=== PATIENT | female | born 1950 | race Caucasian/White ===

== ENCOUNTER → 2024-02-27 10:23 | Outpatient (REF) | payer MEDICARE, BC, SELFPAY | LOC: RAD 10:23 | PROVIDERS: ATTENDING PHYSICIAN Obstetrics & Gynecology; FAMILY PHYSICIAN Family Medicine | DX: N95.0 Postmenopausal bleeding (principal) | CPT/HCPCS: 76830; 76856 ==

== ENCOUNTER → 2024-06-02 13:40 | Outpatient (REF) | payer MEDICARE, BC, SELFPAY ==
[2024-06-02 14:38] LABS: Hematocrit 32.2 % (37.0-47.0); Hemoglobin 10.7 g/dL (12.0-16.0); Mean Corp Hgb Conc. 33.2 g/dL (33.0-37.0); Mean Corpuscular Hgb 28.3 pg (27.0-31.0); Mean Corpuscular Volume 85.2 fL (81.0-99.0); Mean Platelet Volume 10.1 fL (7.4-10.4); Platelet Count 298 10^3/uL (130-400); Red Blood Cell Count 3.78 10^6/uL (4.20-5.40); Red Cell Dist. Width 13.8 % (11.5-14.5); White Blood Cell Count 10.1 10^3/uL (4.8-10.8)
== END ==
LOC: SDSPAT 13:40
PROVIDERS: ATTENDING PHYSICIAN Obstetrics & Gynecology; FAMILY PHYSICIAN Family Medicine; OTHER PHYSICIAN Internal Medicine
DX: Z01.818 Encounter for other preprocedural examination (principal)
CPT/HCPCS: 36415; 85027; 86850; 86900; 86901; 93005

== ENCOUNTER 2024-06-15 13:02 | Emergency (ER) | payer MEDICARE, BC, SELFPAY ==
[2024-06-15 13:04] VITALS: BP 161/101
--- NOTE | 2024-06-15 14:28 | ED.GENMED ---
History of Present Illness
General
Chief Complaint: Head Injury
Source: patient
Exam Limitations: none
Time Seen by Provider: 06/15/24 14:11
Nursing documentation reviewed up to this point in time: agreed with
History of Present Illness
History of Present Illness:
Patient is a 73-year-old female with past medical history of hypertension, hyperlipidemia, currently being worked up for possible uterine cancer, who presents the emergency department from home via EMS for evaluation following a head injury that
occurred around noon today. Patient reports that she was working outside her home when she stepped backwards and into a divot in the ground. She reports that she reportedly fell backwards, striking the back of her head and causing a laceration to
her scalp. Patient reports that she had bleeding from her head which has since stopped. Patient denies that she experienced a loss of consciousness, denies that she is anticoagulated. Patient endorses some slight lightheadedness. She denies any
headache, blurred vision or double vision, neck pain, back pain, nausea, vomiting. Patient denies any numbness, weakness, tingling of her extremities. Patient denies any other injuries were sustained as a result of the fall.
Past History
Past History
ED Past Medical History: HTN, Hypercholesterolemia, NIDDM and Other (currently being evaluated for possible uterine cancer)
ED Past Surgical History: Other (Lumpectomy, cataract surgery)
Social History
Tobacco: Non-smoker
Alcohol: None
Drug: None
Living: alone
Review of Systems
Review of Systems
Allergies reviewed?: Yes
All Other Systems: ROS reviewed and negative except as documented in HPI and ROS
Constitutional: Reports no symptoms
EENT: Reports no symptoms
Respiratory: Reports no symptoms
Cardiac: Reports no symptoms
ABD/GI: Reports no symptoms
: Reports no symptoms
Musculoskeletal: Reports no symptoms
Skin: Reports other (laceration)
Neurological: Reports dizzy; Denies headache
Endocrine: Reports no symptoms
Hematologic/Lymphatic: Reports no symptoms
Psychiatric: Reports no symptoms
Phy Exam
General Physical Exam
General Presentation: well appearing and no apparent distress
General Skin: warm and dry
General Habitus: normal
General Mental: alert
General Hydration: appears well hydrated
ENT Exam
ENT Exam: EOMI, pharynx normal, neck supple and normocephalic
Eye Exam
Eye Exam: PERRL, cornea clear and conjunctiva normal
Cardiovascular Exam
Cardiovascular Exam: regular rate/rhythm, no edema, no murmur and normal peripheral pulses
Pulmonary Exam
Pulmonary Exam: lungs clear, no respiratory distress, no rales, no crackles, no rhonchi, no stridor, no wheezing and no cough
Gastrointestinal Exam
Gastrointestinal Exam: normal bowel sounds, non tender, soft, no organomegaly, no pulsatile mass and non distended
Neurological Exam
Neurological Exam: alert, oriented x3, no motor deficits and speech normal
Musculoskeletal Exam
Musculoskeletal Exam: full ROM and no edema
Skin Exam
Skin Exam: normal color, warm/dry, no rash, no petechia and other (laceration to the left parietal scalp, no active bleeding)
Psychiatric Exam
Psychiatric Exam: normal mood/affect
Course
Orders/Labs/Results
Orders:
Orders
06/15/24 13:09
CT Cervical Spine W/o Iv Contr Urgent
Comment:
Reason For Exam: head injury
CT Head W/o Iv Contrast Urgent
Comment:
Reason For Exam: head injury
Vital Signs
Initial and Last Documented VS:
Initial Vital Signs
Temp Pulse Resp BP Pulse Ox
97.7 F 100 16 161/101 98
06/15/24 13:04 06/15/24 13:04 06/15/24 13:04 06/15/24 13:04 06/15/24 13:04
Last Documented Vital Signs
Temp Pulse Resp BP Pulse Ox
97.7 F 93 18 182/95 100
06/15/24 13:04 06/15/24 16:10 06/15/24 16:10 06/15/24 16:10 06/15/24 16:10
Procedures
Laceration Closure
Left Scalp:
Status of Wound: clean
Size of Wound in cm: 2.5
Description of Wound Edges: ragged
Preparation: cleaned with saline
Anesthesia: 1% Lidocaine with epi
Revision/Debridement: routine- no revision
Wound exploration: extensive cleaning of contaminated wound
Type of Closure: single layer closure
Skin Closure Material: skin patience
Number of sutures: 5
*Critical Care Note
Total Time (30-74mins, 75-104mins- exclusive of procedures): Not Applicable
Update Note
Update Note:
73-year-old female not currently anticoagulated presents to the emergency department for evaluation following a mechanical fall in which the patient did hit the back of her head and sustained a scalp laceration. Patient denies loss of
consciousness. She reports a slight headache but denies any other neurological complaints. On arrival, patient is hypertensive, afebrile. On exam, patient is well-appearing, she is in no acute distress, laceration is as described, she has no
midline cervical spine tenderness, she has full range of motion of her neck, she is neurologically intact. Given the patient's age, will obtain CT of head of the head and cervical spine. Patient's laceration will require primary closure given the
size today.
CT of the head and cervical spine demonstrates no acute abnormality. Laceration was repaired with 5 patience as described. Patient is safe for discharge to home. She was educated on signs and symptoms as well as treatment of concussion. She
states that her brother will be staying with her and can keep an eye on her. Patient was educated on strict return precautions, she expressed understanding of the plan and agreed.
ED Attending Note
-
Portions of this chart may have been created with voice recognition software.� Occasional wrong word or��sound alike� substitutions may have occurred due to the inherent limitations of voice recognition software.
Discharge Plan
Departure
Patient Disposition: Home (Routine Discharge)
Date of Disposition: 06/15/24
Time of Disposition: 15:55
Patient with high blood pressure during this ER visit?: Yes
Condition: Good
Covid-19: Not Applicable
Discharge Problem:
Closed head injury, Laceration of scalp
Instructions: Head Injury in Adults (DC), Laceration Repair With [place] (DC)
Prescriptions:
No Action
losartan 50 mg Tablet
50 mg PO DAILY
atorvastatin 80 mg Tablet
80 mg PO HS
metformin 1,000 mg Tablet
1,000 mg PO BID
hydrochlorothiazide 12.5 mg Capsule
12.5 mg PO DAILY
magnesium 250 mg Tablet
250 mg PO DAILY
coenzyme Q10 [CoQ-10] 100 mg Capsule
100 mg PO DAILY
cholecalciferol (vitamin D3) [Vitamin D3] 50 mcg (2,000 unit) Capsule
50 mcg PO DAILY
lutein 10 mg Tablet
10 mg PO DAILY
iron 159 mg (45 mg iron) Tablet Extended Release
159 mg PO DAILY
Referrals:
Essie Valdez MD [Family Provider] - Follow up in 5-7 days (For staple removal)
Activity Restrictions/Additional Instructions:
You were seen in the department for evaluation following a head injury. You had a CT scan of your head and neck which shows no dangerous abnormalities. You had a laceration to your scalp which was repaired with 5 patience. Please keep the area
clean by washing gently with soap and water, pat dry. Please follow-up with her primary care provider for staple removal in 5 days. In hitting your head, you could have sustained a concussion. The treatment for this is resting your brain as well
as your body. You may take Tylenol 650 mg every 4 hours if needed for headache, not to exceed 3000 mg in a 24-hour period. However, if you develop severe headache, persistent vomiting, confusion, you should return to the emergency department
immediately.
Interventions
Interventions:
*Risk Screen - Suicide Last Done: 06/15/24 13:06
*General Assessment Last Done: 06/15/24 14:17
*Neglect/Abuse Screening Last Done: 06/15/24 13:06
ED- Fall Risk Assessment Last Done: 06/15/24 16:11
*ED COVID-19 Vaccine History Last Done: 06/15/24 14:17
*Nursing Disposition Last Done: 06/15/24 16:11
ED- Neurological Assessment Last Done: 06/15/24 14:17
ED-Skin Assessment Last Done: 06/15/24 16:11
Discharge Date and Time
Discharge Date/Time: 06/15/24 16:11
Print Language: MALTESE
[2024-06-15 16:10] VITALS: BP 182/95
== END 2024-06-15 16:11 | disposition home or self-care (01) ==
LOC: EMR 13:02
PROVIDERS: EMERGENCY PHYSICIAN Emergency Medicine; FAMILY PHYSICIAN Family Medicine
DX: S09.90XA Unspecified injury of head, initial encounter (principal); S01.01XA Laceration without foreign body of scalp, initial encounter; W19.XXXA Unspecified fall, initial encounter; I10 Essential (primary) hypertension; E78.00 Pure hypercholesterolemia, unspecified; E11.9 Type 2 diabetes mellitus without complications
CPT/HCPCS: 99284; 12001; 70450; 72125

== ENCOUNTER 2024-08-16 22:36 | Inpatient (IN) | payer MEDICARE, BC, SELFPAY ==
[2024-08-16 18:06] VITALS: BP 85/47
[2024-08-16 18:40] LABS: Hematocrit 32.3 % (37.0-47.0); Hemoglobin 10.6 g/dL (12.0-16.0); Mean Corp Hgb Conc. 32.8 g/dL (33.0-37.0); Mean Corpuscular Hgb 27.9 pg (27.0-31.0); Mean Platelet Volume 9.8 fL (7.4-10.4); Platelet Count 277 10^3/uL (130-400); Red Cell Dist. Width 14.4 % (11.5-14.5); White Blood Cell Count 22.3 10^3/uL (4.8-10.8)
[2024-08-16 18:48] LABS: ALT (SGPT) 16 U/L (0-35); AST (SGOT) 25 U/L (14-36); Albumin 3.4 g/dl (3.5-5.0); Alkaline Phosphatase 85 U/L (38-126); Blood Urea Nitrogen 42 mg/dl (7-17); Calcium 9.3 mg/dl (8.4-10.2); Carbon Dioxide 26 mmol/L (22-30); Chloride 98 mmol/L (98-107); Glucose 131 mg/dl (70-99); Potassium 3.9 mmol/L (3.5-5.1); Sodium 135 mmol/L (135-145); Total Bilirubin 0.5 mg/dl (0.2-1.3); Total Protein 6.1 g/dl (6.3-8.2); eGFR 37.03
--- NOTE | 2024-08-16 19:33 | ED.GENMED ---
History of Present Illness
General
Chief Complaint: Ear Problem
Source: patient
Exam Limitations: none
Time Seen by Provider: 08/16/24 19:25
History of Present Illness
History of Present Illness:
See MDM
Past History
Past History
ED Past Medical History: HTN, Hypercholesterolemia, NIDDM and Other (currently being evaluated for possible uterine cancer)
ED Past Surgical History: Gynecological and Other (Lumpectomy, cataract surgery)
Social History
Tobacco: Non-smoker
Alcohol: None
Drug: None
Living: alone
Phy Exam
Physical Exam
Physical Exam:
See MDM
Course
Orders/Labs/Results
Orders:
Orders
08/16/24 18:13
Electrocardiogram (*1) Urgent
Reason for Study: Vertigo / Dizzy
EKG- Treatment ONCE
08/16/24 18:28
Complete Blood Count/With Diff Urgent
Comprehensive Metabolic Panel Urgent
08/16/24 19:32
CT Head W/o Iv Contrast Urgent
Comment:
Reason For Exam: dizzy, left side hearing loss
0.9% Sodium Chloride 1000 ml [Nss] 1,000 ml IV BOLUS
08/16/24 19:53
Troponin I Urgent
08/16/24 20:49
Aspirin Chewable [Low Strength Aspirin] 324 mg PO NOW STA
Abnormal Lab Results
08/16/24 08/16/24
18:28 19:53
WBC 22.3 H 10^3/uL
(4.8-10.8)
RBC 3.80 L 10^6/uL
(4.20-5.40)
Hgb 10.6 L g/dL
(12.0-16.0)
Hct 32.3 L %
(37.0-47.0)
MCHC 32.8 L g/dL
(33.0-37.0)
Abs Immat Gran (auto) 1.1 H 10^3/uL
(0-0.05)
Absolute Neuts (auto) 19.0 H 10^3/uL
(1.4-6.5)
Absolute Lymphs (auto) 1.1 L 10^3/uL
(1.2-3.4)
Absolute Monos (auto) 0.8 H 10^3/uL
(0.1-0.6)
Immature Gran % 4.8 H %
(0-0.5)
Neutrophils % 85.5 H %
(42.2-75.2)
Lymphocytes % 4.9 L %
(20.5-51.1)
BUN 42 H mg/dl
(7-17)
Creatinine 1.5 H mg/dL
(0.6-1.0)
Glucose 131 H mg/dl
(70-99)
Troponin I 0.065 H* ng/ml
Total Protein 6.1 L g/dl
(6.3-8.2)
Albumin 3.4 L g/dl
(3.5-5.0)
08/16/24 18:28
08/16/24 18:28
Vital Signs
Initial and Last Documented VS:
Initial Vital Signs
Temp Pulse Resp BP Pulse Ox
97.5 F 107 18 85/47 100
08/16/24 18:06 08/16/24 18:06 08/16/24 18:06 08/16/24 18:06 08/16/24 18:06
Last Documented Vital Signs
Temp Pulse Resp BP Pulse Ox
97.5 F 107 18 85/47 100
08/16/24 18:06 08/16/24 18:06 08/16/24 18:06 08/16/24 18:06 08/16/24 18:06
MDM/Problems Addressed
Differential Diagnosis Includes:
HPI and MDM Narrative:
73-year-old female presenting with hearing loss in her left ear. She noticed it earlier today when she picked up the phone. She could not hear anyone on the other side. This is also associated with mild dizziness.
On exam, she is well-appearing nontoxic. Upon further questioning, patient just had a hysterectomy a few weeks ago for uterine cancer. Will obtain CT head to look for any evidence of mass effect. Patient found to have leukocytosis but she is
afebrile. She is clinically dry. Will give IV fluids and continue to reassess.
She does complain of mild dyspnea with exertion. Will check troponin
Physical exam
General: Well appearing and non-toxic
HEENT: protecting airway. Bilateral TMs clear. Decreased hearing in left ear. Mastoid is soft and without skin changes
Neck: supple
CV: No evidence of cyanosis
Resp: No accessory muscle use
Abd: Non-distended. Postsurgical incisions are clean and intact. No abdominal tenderness
Extremities: No deformities
Neuro: alert
Psych: Normal affect
Skin: Intact
Problems Addressed including Acute and Chronic Conditions affecting care:
1. Hearing loss
Acuity: acute
Prognosis: stable
Details: Will obtain CT look for any mass effect. Discussed outpatient ENT follow-up
2. Dehydration
Acuity: acute
Prognosis: stable
Details: Will give IVF
3. Exertional dyspnea
Acuity: acute
Prognosis: stable
Details: Will obtain troponin with concern for possible ACS
Updates
CT head negative. Hearing is improving with IV fluids. Patient found to have an elevated troponin. He does complain of recent dyspnea with exertion. Given compliance with Eliquis, doubt PE. Will give aspirin and admit for ACS rule out
Differential Diagnosis (but not limited to): Inner ear tumor, sensorineural hearing loss, ACS
Testing considered: Blood cultures but she is afebrile
Drug therapy (if applicable): OTC meds, please see d/c instruction regarding Rx drugs
Amount and/or Complexity of Data Reviewed
Clinical info obtained from: Patient
External data reviewed: N/A
Labs I independently reviewed (but not limited to): Leukocytosis
Radiology: The CT scan was personally and independently reviewed. In addition, official CT report reviewed.
Pulse Ox: not hypoxic
EKG independently reviewed: Sinus rhythm, normal axis, no STEMI
Lumber Racker: Sinus rhythm
Critical Care: N/A
Risk of Complication:
Social Determinants of health: Good social support
Discussed with other providers: Hospitalist
Escalation of Care includes Admit/Obs: Given the exertional dyspnea with elevated troponin, will admit
Occasional wrong word or 'sound a like' substitutions may have occurred due to the inherent limitations of voice recognition software. Read the chart carefully and recognize, using context, where substitutions have occurred.
*Critical Care Note
Total Time (30-74mins, 75-104mins- exclusive of procedures): Not Applicable
ED Attending Note
-
Portions of this chart may have been created with voice recognition software.� Occasional wrong word or��sound alike� substitutions may have occurred due to the inherent limitations of voice recognition software.
Discharge Plan
Departure
Patient Disposition: Admit
Date of Disposition: 08/16/24
Time of Disposition: 20:55
Admit to: Telemetry
Presentation/result/management discussed w/ accepting MD/DO: Hospitalist
Discharge Problem:
Exertional dyspnea
Prescriptions:
No Action
losartan 50 mg Tablet
50 mg PO DAILY
atorvastatin 80 mg Tablet
80 mg PO HS
metformin 1,000 mg Tablet
1,000 mg PO BID
hydrochlorothiazide 12.5 mg Capsule
12.5 mg PO DAILY
magnesium 250 mg Tablet
250 mg PO DAILY
coenzyme Q10 [CoQ-10] 100 mg Capsule
100 mg PO DAILY
cholecalciferol (vitamin D3) [Vitamin D3] 50 mcg (2,000 unit) Capsule
50 mcg PO DAILY
lutein 10 mg Tablet
10 mg PO DAILY
iron 159 mg (45 mg iron) Tablet Extended Release
159 mg PO DAILY
Referrals:
Essie Valdez MD [Family Provider] -
Interventions
Interventions:
*Risk Screen - Suicide Last Done: 08/16/24 18:06
*General Assessment Last Done: 08/16/24 18:06
*Neglect/Abuse Screening Last Done: 08/16/24 18:06
Discharge Date and Time
Print Language: TAIWANESE
[2024-08-16] MEDS: NSS 1000 IV (19:57)
[2024-08-16 20:03] LABS: % Basophils 0.3 % (0-2); % Eosinophils 0.7 % (0-6); % Immature Granulocytes 4.8 % (0-0.5); % Lymphocytes 4.9 % (20.5-51.1); % Monocytes 3.8 % (1.7-9.3); % Neutrophils 85.5 % (42.2-75.2); Absolute Basophils 0.1 10^3/uL (0-0.2); Absolute Eosinophils 0.2 10^3/uL (0-0.7); Absolute Immature Granulocytes 1.1 10^3/uL (0-0.05); Absolute Lymphocytes 1.1 10^3/uL (1.2-3.4); Absolute Monocytes 0.8 10^3/uL (0.1-0.6); Nucleated Red Blood Cells % 0 %
[2024-08-16 20:32] LABS: Troponin I 0.065 ng/ml
[2024-08-16] MEDS: LOW STRENGTH ASPIRIN 324 MG PO (20:58)
[2024-08-16 21:01] VITALS: BP 126/65
[2024-08-16 21:37] VITALS: BMI 26.3
[2024-08-16 22:00] VITALS: BP 124/96
--- NOTE | 2024-08-16 22:27 | HPS.HSE ---
Family Physician
-
Family Physician: Essie Valdez MD
Chief Complaint
-
Hearing Loss
History of Present Illness
Patient is a 73y F with PMH significant for hypertension, DM-II and uterine cancer s/p recent hysterectomy who presents to ED complaining of hearing loss. Patient states that she was feeling well / recovering well at home following her
hysterectomy on 07/27/24. On Saturday evening she noted shaking chills. When she woke on Saturday, she noted very poor balance. She had to hold onto furniture in order to walk in her home. She denies any associated headache, room spinning
sensation or nausea. She felt improved today in regards to her balance; however, she noted significant hearing loss in the L ear only. This prompted patient to present to the ED for further evaluation.
Patient notes that she has been having issues with constipation and urinary incontinence since her recent surgery.
She has been on a bowel regimen at home and reports having two BM on Saturday.
She reports mild dyspnea with activity. No sore throat. Mild, non-productive cough.
Patient incidentally notes that she had a fall on 06/15/24. She fell backwards and struck her head on the ground. She was evaluated in the ED here and CT imaging at that time was unremarkable.
She noted no new neurologic symptoms - prior to balance issue that started only 24 hours ago.
Medical History
Past Medical History
Past Medical History: Reports Other
Additional Past Medical History:
Metastatic Uterine Cancer
Breast Cancer s/p Lumpectomy, Chemo and XRT
Hypertension
DM-II
Past Surgical History: Reports Other
Additional Past Surgical History:
Right Lumpectomy
Hysterectomy (07/27/24)
Social History
Tobacco: Non-smoker
Alcohol: None
Drug: None
Family History
Family History: Other (Mother: Breast Cancer ( age 41))
Allergies / Home Medications
Allergies reflects when Allergies were last updated in [facility].
Home Medications with original date entered in [facility]
Allergy/Medication List:
Allergies
Allergy/AdvReac Type Severity Reaction Status Date / Time
Penicillins Allergy Rash Verified 06/01/24 10:32
Home Medications
atorvastatin 80 mg tablet 80 mg PO HS 06/01/24
hydrochlorothiazide 12.5 mg capsule 12.5 mg PO DAILY 06/01/24
losartan 50 mg tablet 50 mg PO DAILY 06/01/24
lutein 10 mg tablet 10 mg PO BID 06/01/24
metformin 1,000 mg tablet 1,000 mg PO BID 06/01/24
apixaban 2.5 mg tablet (Eliquis) 2.5 mg PO BID 08/16/24
sennosides 8.6 mg tablet (senna) 8.6 mg PO DAILY PRN constipation 08/16/24
Review of Systems
-
History Source: Patient
A 12 point ROS was completed and negative except as noted: Yes
Constitutional: Reports Fatigue and Chills; Denies Fever
EENT: Reports Other (Hearing Loss (Left)); Denies Sore Throat
Respiratory: Reports Trouble Breathing; Denies Cough
Cardiac: Denies Chest Pain, Diaphoresis, Palpitations or Syncope
Abdomen/GI: Reports Constipated; Denies Abdominal Pain, Nausea, Vomiting, Diarrhea, Bloody Stools or Black Stools
: Reports Incontinence; Denies Dysuria, Frequency or Flank Pain
Musculoskeletal: Denies Joint Pain or Edema
Neurological: Reports Dizzy; Denies Headache, Weakness or Numbness
Psych: Denies Depression or Anxiety
Physical Exam
Vital Signs
Vital Signs
Temp Pulse Resp BP Pulse Ox
97.5 F 81 16 126/65 100
08/16/24 18:06 08/16/24 21:30 08/16/24 21:30 08/16/24 21:01 08/16/24 18:06
Physical Exam
General: Other (73y F in no acute distress. Mildly pale-appearing.)
HEENT: Moist mucous membranes, PERRLA and Other (No significant cerumen b/l EACs. )
Respiratory: Clear; No Wheezes, Rales or Rhonchi
Cardiac: S1/S2, Regular Rhythm and Murmur (II/ KD)
GI: Other ([place] incision healing well. No bleeding / discharge. No abdominal tenderness / rebound / guarding. Pos BS.)
Musculoskeletal: No Clubbing, No Cyanosis and No Edema
Neuro: AO x 3 and Nonfocal/grossly intact
Laboratory Results
-
08/16/24 18:28
08/16/24 18:28
Laboratory Results
Total Bilirubin 0.5 mg/dl (0.2-1.3) 08/16/24 18:28
AST 25 U/L (14-36) 08/16/24 18:28
ALT 16 U/L (0-35) 08/16/24 18:28
Alkaline Phosphatase 85 U/L (38-126) 08/16/24 18:28
Troponin I 0.065 ng/ml H* 08/16/24 19:53
Impression/Plan
-
A/P: Patient is a 73y F with PMH significant for metastatic uterine cancer, hypertension and DM-II who presents to ED complaining of unilateral hearing loss.
Left-Sided Sensorineural Hearing Loss
- Admit for further evaluation and treatment.
- Patient with some unsteady gait - but no room spinning / vertigo.
- Begin corticosteroids (pred 60mg daily) given sudden unlateral sensorineural hearing loss.
- Follow for clinical improvement.
- Additional work up to include MRI w and w/o contrast.
- Monitor for any new / worsening symptoms.
- PT / OT evaluation for gait - though patient states that this is improving.
SIRS
- Patient presented with tachycardia, leukocytosis with shift. Stated chills Tab evening.
- No other specific / focal symptoms to suggest infectious etiology.
- Abdomen is benign following recent surgery.
- Observe off of abx for now.
- Check cultures and follow for any new / focal symptoms.
Abnormal Troponin
- Troponin in the ED mildly elevated at 0.065. No chest pain. Mild dyspnea that patient states has been chronic.
- EKG without evident ischemia.
- Follow serial trop to peak.
- Cardiology evaluation if any new / worsening symptoms or if troponin increases.
Renal Insufficiency
- SCr on admission is 1/5 with no prior values for comparison.
- Will hold ARB for now. IVFs overnight.
- Follow labs over 48 hours to determine MALLIKA v CKD.
Normocytic Anemia
- Stable / unchanged from prior Hgb on file.
- Check iron studies. Follow for changes in H&H.
Metastatic Uterine Cancer
- s/p hysterectomy on 07/27/24.
- Has yet to begin adjuvant therapies (chemo / XRT / etc).
- Plan is to begin after two months of surgical recovery.
- MRI brain as noted above.
- Surgical incision appears to be healing well.
- Follow for any changes.
Benign Hypertension
- BP on the lower side in the ED.
- Hold HCTZ and ARB acutely.
DM-II
- Stable. Hold metformin acutely.
- Follow glucose and cover with SSI as needed.
- Update A1C.
Post-Op Constipation
- Improving with bowel regimen at home per patient.
- Abdomen is benign.
- Continue bowel regimen and follow for results.
DVT Prophylaxis: Continue Eliquis started post-op for this purpose.
Code Status: Full
[2024-08-16] MEDS: DELTASONE 60 MG PO (22:38)
[2024-08-16 23:00] VITALS: BP 128/73
[2024-08-17] VITALS (9 sets, daily range): BP systolic 106–161; BP diastolic 57–85; BMI 23.9
--- NOTE | 2024-08-17 02:30 | PTCARENOTE ---
Received patient from ER. Stable vitals. Offers no complaints. SR with PACs on tele in 70s-80s. POC reviewed with patient
[2024-08-17 02:39] LABS: Urine Albumin 1+ (Neg - Trace); Urine Bilirubin Negative (Negative); Urine Character Slightly Cloudy (Clear); Urine Color Yellow; Urine Glucose Negative (Negative); Urine Ketone Negative (Negative); Urine Leukocyte 2+ (Negative); Urine Nitrite Positive (Negative); Urine Occult Blood 3+ (Negative); Urine Specific Gravity 1.015 (<1.030); Urine Urobilinogen Negative (Neg - 1+)
[2024-08-17 02:47] LABS: Urine Bacteria Many (Negative); Urine White Cell 30-40 /HPF (0-5)
[2024-08-17] MEDS: LR 1000 IV ×2 (03:02→13:31)
[2024-08-17 05:59] LABS: Hematocrit 28.1 % (37.0-47.0); Hemoglobin 9.2 g/dL (12.0-16.0); Mean Corp Hgb Conc. 32.7 g/dL (33.0-37.0); Mean Corpuscular Hgb 27.9 pg (27.0-31.0); Mean Corpuscular Volume 85.2 fL (81.0-99.0); Mean Platelet Volume 10.2 fL (7.4-10.4); Platelet Count 233 10^3/uL (130-400); Red Cell Dist. Width 14.4 % (11.5-14.5); White Blood Cell Count 13.8 10^3/uL (4.8-10.8)
[2024-08-17 06:19] LABS: Troponin I 0.029 ng/ml
[2024-08-17 06:24] LABS: ALT (SGPT) 13 U/L (0-35); AST (SGOT) 19 U/L (14-36); Albumin 2.8 g/dl (3.5-5.0); Alkaline Phosphatase 91 U/L (38-126); Blood Urea Nitrogen 39 mg/dl (7-17); Calcium 8.6 mg/dl (8.4-10.2); Carbon Dioxide 22 mmol/L (22-30); Chloride 101 mmol/L (98-107); Direct Bilirubin 0.1 mg/dl (0.0-0.4); Estimated Creatinine Clearance 42 ml/min; Glucose 177 mg/dl (70-99); HDL Cholesterol 41 mg/dl; Iron 24 ug/dl (37-170); LDL Cholesterol, Calculated 69 mg/dl; Magnesium 2.1 mg/dl (1.6-2.3); Potassium 4.1 mmol/L (3.5-5.1); Sodium 132 mmol/L (135-145); Total Bilirubin 0.3 mg/dl (0.2-1.3); Total Cholesterol 139 mg/dl (50-199); Total Protein 5.4 g/dl (6.3-8.2); Triglyceride 148 mg/dl (10-149); Very Low Density Lipoprotein 29 mg/dl (0-30); eGFR 48.39
[2024-08-17 06:33] LABS: Percent Saturation 12 % (20-50); Total Iron Binding Capacity 197 ug/dl (265-497)
[2024-08-17 06:54] LABS: TSH Reflex To Free T4 0.64 uIU/ml (0.47-4.68)
[2024-08-17 08:05] LABS: Troponin I 0.025 ng/ml
[2024-08-17 08:06] LABS: Glucose - Point of Care 212 mg/dl (70-99)
[2024-08-17] MEDS: DELTASONE 60 MG PO (08:27)
[2024-08-17] MEDS: PROTONIX 40 MG PO (08:27)
[2024-08-17] MEDS: ELIQUIS 2.5 MG PO ×2 (08:28→20:18)
[2024-08-17] MEDS: NOVOLOG FLEXPEN-LOW RESISTANCE 2 UNITS SC ×2 (08:29→17:20)
[2024-08-17] MEDS: TYLENOL 650 MG PO ×2 (08:31→21:40)
[2024-08-17 08:34] LABS: Glycohemoglobin (HgbA1c) 6.4 % (4.0-5.6)
--- NOTE | 2024-08-17 09:20 | W.PN.HOSP.TC ---
Addendum entered and electronically signed by Macarena Newsome MD 08/17/24 10:08:
blood culture with gram negative bacilli. UA is inflamed - may be source
will start IV Cefepime
hold off on CT A/P given no abdominal pain (would order if urine culture negative)
consult ID
patient updated
Original Note:
Today's Communication/Plan
-
continue prednisone
MRI
ENT Consult
PT/OT
Assessment / Plan
Assessment / Plan
Patient is a 73y F with PMH significant for hypertension, DM-II and uterine cancer s/p recent hysterectomy 07/27/24 who presents to ED complaining of recent loss of balance and hearing loss.
Left-Sided Sensorineural Hearing Loss
- Patient with some unsteady gait - but no room spinning / vertigo.
- Begin corticosteroids (pred 60mg daily) given sudden unilateral sensorineural hearing loss.
- MRI w and w/o contrast.
- ENT consult
- PT / OT evaluation for gait - though patient states that this is improving.
SIRS
- Patient presented with tachycardia, leukocytosis with shift. Stated chills Saturday evening. Leukocytosis improved this morning and patient currently denies symptoms
- No other specific / focal symptoms to suggest infectious etiology.
- Abdomen is benign following recent surgery.
- Observe off of abx for now.
- Check cultures and follow for any new / focal symptoms.
Abnormal Troponin
- Troponin in the ED mildly elevated at 0.065 - has trended down. No chest pain. Mild dyspnea that patient states has been chronic. in setting of SIRS - non-IA Troponin elevation
- EKG without evident ischemia.
Renal Insufficiency
- SCr on admission is 1.5 with no prior values for comparison.
- Will hold ARB for now. IVFs overnight - improved this AM
- Follow labs over 48 hours to determine MALLIKA v CKD.
Normocytic Anemia
- Stable / unchanged from prior Hgb on file.
- Check iron studies. Follow for changes in H&H.
Metastatic Uterine Cancer
- s/p hysterectomy on 07/27/24.
- Has yet to begin adjuvant therapies (chemo / XRT / etc).
- Plan is to begin after two months of surgical recovery.
- MRI brain as noted above.
- Surgical incision appears to be healing well.
- Follow for any changes.
Benign Hypertension
- BP on the lower side in the ED.
- Hold HCTZ and ARB acutely.
DM-II
- Stable. Hold metformin acutely.
- Follow glucose and cover with SSI as needed.
- Update A1C.
Post-Op Constipation
- Improving with bowel regimen at home per patient.
- Abdomen is benign.
- Continue bowel regimen and follow for results.
DVT Prophylaxis: Continue Eliquis started post-op for this purpose.
Code Status: Full
Anticipated Discharge: 24 - 48 hours
Subjective/Interval History
-
Date of Service: August 17, 2024
possibly notices some improvement left hearing loss
no other weakness/numbness
currently denies chills or aches
Objective Data
-
Labs:
Laboratory Results
08/17/24
05:28
WBC 13.8 H
Hgb 9.2 L
Hct 28.1 L
Plt Count 233
Sodium 132 L
Potassium 4.1
Chloride 101
Carbon Dioxide 22
BUN 39 H
Creatinine 1.2 H
Glucose 177 H
Calcium 8.6
Total Bilirubin 0.3
AST 19
ALT 13
Alkaline Phosphatase 91
Vital Signs:
Vital Signs
Temp Pulse Resp BP Pulse Ox
98.2 F 78 16 139/78 100
08/17/24 07:40 08/17/24 07:40 08/17/24 07:40 08/17/24 07:40 08/17/24 07:40
I&O
08/16/24 08/17/24 08/18/24
06:59 06:59 06:59
Intake Total 780 / 780
Balance 780 / 780
Review of Systems
-
History Source: Patient
All other systems: Reviewed and negative
Physical Exam
-
General: No Apparent Distress
HEENT: PERRLA
Respiratory: Clear to Auscultation; Negative Wheezes
Cardiac: Regular Rhythm and S1/S2
GI: Soft and Nontender
Musculoskeletal: No Edema
Skin: Warm and Dry; Negative Rash
Neuro: AO x 3
Psych: Calm
Data Reviewed
-
Diagnostic Radiology: Report Reviewed by me
Labs: Labs Reviewed by me
[2024-08-17] MEDS: MAXIPIME 2000 MG IV ×2 (10:23→21:45)
[2024-08-17] MEDS: STERILE WATER FOR INJECTION 10 ML IV ×2 (10:23→21:45)
[2024-08-17 10:41] LABS: COVID-19 Antigen Negative (Negative)
--- NOTE | 2024-08-17 10:53 | CM ---
Reviewed the chart notes and spoke with the patient at the bedside. The patient resides alone in a one story home with a few steps to enter. The patient has had [facility] in the past. Patient reports no DME or SNF in the past. The patient
confirmed PCP is Essie Valdez and pharmacy is [facility]. CM continues to be available to patient/family and is monitoring medical plan for needs at discharge.
Plan: Discharge to home when medically stable. No needs anticipated.
[2024-08-17 12:09] LABS: Glucose - Point of Care 256 mg/dl (70-99)
[2024-08-17] MEDS: NOVOLOG FLEXPEN-LOW RESISTANCE 3 UNITS SC (12:27)
--- NOTE | 2024-08-17 12:48 | CON.MD ---
Consultation - Medical
-
chief complaint: Sudden hearing loss
History of present illness: This 73-year-old woman who is chronically anticoagulated with Eliquis and has caz-mfpoqxy-fdfacbejp diabetes mellitus developed sudden dizziness with difficulty standing without support 2 days ago. Later she noted that
she had hearing loss in the left ear. The dizziness has since improved so she is able to walk fairly well. She hears some tinnitus in the left ear but does not have ear pain. She is feeling good otherwise at this point. She had a CT scan of the
head which showed no evidence of fluid within the mastoid cavity. She is scheduled for an MRI scan.
Past medical history:
Allergy: Penicillins cause a rash
Home medications: Eliquis 2.5 mg p.o. twice daily, atorvastatin 80 mg p.o. nightly, hydrochlorothiazide 12.5 mg p.o. daily, losartan 50 mg p.o. daily, lutein 10 mg p.o. twice daily, metformin 1000 mg p.o. twice daily, senna 8.6 mg p.o. daily as
needed
Hospitalizations: The patient is currently hospitalized with left-sided hearing loss and dizziness
Family history: Asked and is noncontributory for this problem
Review of systems: Dizziness 2 days ago now significantly improved, left-sided hearing loss with tinnitus, negative for ear pain and drainage
Physical examination:
Head: Atraumatic and normocephalic
Eyes: Extraocular movements are intact and pupils are equal and reactive to light
Nose: Normal without infection
Oral cavity/oropharynx: Normal
Ears: Eardrums ear canals are clear without signs of fluid or infection.
Cranial nerves: 2 through 12 appear to be intact grossly
Skin: Normal to examination
Thyroid gland: Normal
Salivary glands: Normal to examination
Voice: Normal tone without breathiness
CT scan of head was reviewed and shows evidence of normal mastoids without fluid or mass.
Impression/plan: This 73-year-old woman presents with a 2-day history of dizziness and hearing loss on the left side. She may have experienced a vascular event or a viral infection of the inner ear. I do not see evidence of middle ear infection.
It is also possible she has M�ni�re's disease or autoimmune condition. Her dizziness has significantly improved. She is scheduled for an MRI scan. I suggested that we see her in the office after discharge so we can check her hearing. I gave her
my office phone number. I will see the patient back in the hospital as needed.
--- NOTE | 2024-08-17 13:15 | CON.ID ---
Consultation
-
Date/Time Consultation Requested: 08/17/2024 1003
Date/Time Consultation Performed: 08/17/2024 1240
Requesting Provider: Dr. Newsome
Performing Provider: Dr. Franks
Reason for Consultation: Bacteremia
Chief Complaint / Past History
History of Present Illness
Tracie Vaughn is a 73-year-old female being evaluated at the request of Dr. Newsome in regards to bacteremia. History is obtained from chart review, along with patient interview
Patient has a significant past medical history of recently diagnosed metastatic endometrial cancer, and she is status post hysterectomy on 07/27/2024. She reports that she was doing well in the postop period, but has been dealing with episodes of
intermittent constipation. She also notes that over the past several weeks she has had some intermittent episodes of urinary incontinence with some leakage when standing. She was doing well until approximately 3 to 4 days ago when she recalls the
acute onset of rigors, but without any subsequent fevers. The rigors resolved, but the next day she developed left ear hearing loss and came to the emergency room for further evaluation.
Here, she was found to have marked leukocytosis. Additionally, blood cultures obtained at the time of admission are positive for Klebsiella. Infectious Diseases is asked to comment on further antimicrobial therapy.
At this time, she denies any headache. She denies any significant abdominal discomfort. She denies any history of dysuria or hematuria.
She is followed for her endometrial cancer at [facility].
Past History
Additional Past Medical History:
Metastatic uterine cancer
HTN
Dyslipidemia
DM
Hx breast CA
Additional Past Surgical History:
LEFTY
Lumpectomy
Cataract surgery
Allergy History:
Penicillins Allergy (Verified 06/01/24 10:32)
Rash
Medications Reviewed: Yes
Current Antibiotics:
Cefepime 2 g IV every 12 hours
Social History
Tobacco: Non-Smoker
Alcohol: None
Drug: None
Personal: Single
Living: Alone
Employment: Retired
Family History
Family History: Not Pertinent
Review of Systems
Vital Signs
Temp Pulse Resp BP Pulse Ox
98.2 F 71 16 155/75 96
08/17/24 11:25 08/17/24 11:25 08/17/24 11:25 08/17/24 11:25 08/17/24 11:25
Physical Exam
Physical Exam
Constitutional: No Acute Distress, Comfortable and Non-toxic
Eyes: No Conjunctival Hemorrhage and Sclera Anicteric
Oral: No Thrush and No Ulcers
Cardiovascular: Regular Rate and S1/S2; Negative S3/S4 or Murmur
Pulmonary: Clear; Negative Wheezes or Rales
Gastrointestinal: Soft, Non Tender, Non Distended, Normal Bowel Sounds, No Rebound and No Guarding
Genito-Urinary: Negative Moreno, Suprapubic Tenderness or CVA Tenderness
Extremities: Negative Edema, Cyanosis or Erythema
Skin: Warm and Dry; Negative Rash or Jaundice
Neurological: Awake and Alert
Psychological: Calm
Lab / Diagnostic Study Results
08/17/24 05:28
08/17/24 05:28
Abs Immat Gran (auto) 1.1 10^3/uL (0-0.05) H 08/16/24 18:28
Absolute Neuts (auto) 19.0 10^3/uL (1.4-6.5) H 08/16/24 18:28
Absolute Lymphs (auto) 1.1 10^3/uL (1.2-3.4) L 08/16/24 18:28
Absolute Monos (auto) 0.8 10^3/uL (0.1-0.6) H 08/16/24 18:28
Absolute Basos (auto) 0.1 10^3/uL (0-0.2) 08/16/24 18:28
Immature Gran % 4.8 % (0-0.5) H 08/16/24 18:28
Neutrophils % 85.5 % (42.2-75.2) H 08/16/24 18:28
Lymphocytes % 4.9 % (20.5-51.1) L 08/16/24 18:28
Monocytes % 3.8 % (1.7-9.3) 08/16/24 18:28
Eosinophils % 0.7 % (0-6) 08/16/24 18:28
Basophils % 0.3 % (0-2) 08/16/24 18:28
Ur Squamous Epith Cells 3-5 /LPF (Few) 08/17/24 02:32
Microbiology Results
Micro:
08/16/24 22:40 Blood Culture - Preliminary
Blood/Venous Klebsiella pneumoniae
Gram Stain - Preliminary
08/16/24 22:40 Blood Culture - Preliminary
Blood/Venous Positive culture in progress
Gram Stain - Preliminary
08/17/24 02:32 Urine Culture - Pending
Urine
Imaging:
08/16/2024 CXR (2 view): No evidence for pneumonia. Small thin curvilinear density projecting over the left lower lung on the frontal view, likely a small linear scar. Please see full dictation for additional detail. Film personally viewed.
Assessment / Plan
Klebsiella bacteremia
Suspected complicated urinary tract infection
Leukocytosis
MALLIKA
Metastatic endometrial carcinoma (recent diagnosis; s/p [facility] 07/27/2024)
Hx HTN
Dyslipidemia
DM
Hx breast CA
Recommendations:
Continue with cefepime for the present.
Monitor white count and temperature curve.
Await further culture data to guide antimicrobial selection and de-escalation.
Given bacteremia, check renal ultrasound.
[2024-08-17 17:15] LABS: Glucose - Point of Care 236 mg/dl (70-99)
[2024-08-17 20:07] LABS: Hepatitis C Antibody Negative (Negative)
[2024-08-17 21:31] LABS: Glucose - Point of Care 234 mg/dl (70-99)
[2024-08-17] MEDS: SENOKOT 17.2 MG PO (21:45)
[2024-08-17] MEDS: LIPITOR 80 MG PO (21:45)
[2024-08-18] MEDS: LR 1000 IV (01:41)
[2024-08-18 03:15] VITALS: BP 133/75
[2024-08-18 07:28] LABS: % Basophils 0.2 % (0-2); % Eosinophils 0.1 % (0-6); % Immature Granulocytes 0.5 % (0-0.5); % Lymphocytes 5.4 % (20.5-51.1); % Neutrophils 89.8 % (42.2-75.2); Absolute Immature Granulocytes 0.1 10^3/uL (0-0.05); Absolute Lymphocytes 0.9 10^3/uL (1.2-3.4); Absolute Monocytes 0.7 10^3/uL (0.1-0.6); Absolute Neutrophils 15.3 10^3/uL (1.4-6.5); Hematocrit 28.9 % (37.0-47.0); Hemoglobin 9.8 g/dL (12.0-16.0); Mean Corp Hgb Conc. 33.9 g/dL (33.0-37.0); Mean Corpuscular Hgb 27.7 pg (27.0-31.0); Mean Corpuscular Volume 81.6 fL (81.0-99.0); Mean Platelet Volume 10.9 fL (7.4-10.4); Nucleated Red Blood Cells % 0 %; Platelet Count 216 10^3/uL (130-400); Red Blood Cell Count 3.54 10^6/uL (4.20-5.40); Red Cell Dist. Width 14.2 % (11.5-14.5)
[2024-08-18 07:48] VITALS: BP 157/68
[2024-08-18 07:51] LABS: Blood Urea Nitrogen 33 mg/dl (7-17); Calcium 8.9 mg/dl (8.4-10.2); Carbon Dioxide 22 mmol/L (22-30); Chloride 104 mmol/L (98-107); Estimated Creatinine Clearance 56 ml/min; Glucose 116 mg/dl (70-99); Magnesium 2.2 mg/dl (1.6-2.3); Potassium 4.3 mmol/L (3.5-5.1); Sodium 136 mmol/L (135-145); eGFR > 60.00
[2024-08-18] MEDS: DELTASONE 60 MG PO (09:30)
[2024-08-18] MEDS: PROTONIX 40 MG PO (09:30)
[2024-08-18] MEDS: STERILE WATER FOR INJECTION 10 ML IV (09:30)
[2024-08-18] MEDS: MAXIPIME 2000 MG IV (09:30)
[2024-08-18] MEDS: ELIQUIS 2.5 MG PO (09:30)
[2024-08-18] MEDS: NOVOLOG FLEXPEN-LOW RESISTANCE SC ×2 (09:40→13:27)
[2024-08-18 09:41] LABS: Glucose - Point of Care 95 mg/dl (70-99)
--- NOTE | 2024-08-18 11:07 | W.PN.HOSP.TC ---
Addendum entered and electronically signed by Macarena Newsome MD 08/20/24 14:53:
Sepsis 2/2 Klebsiella pneumonia bacteremia and pelvic abscess
-IV antibiotics as below
Pelvic Abscess is a complication of the surgery and patient was transferred to [facility]
Original Note:
Today's Communication/Plan
-
IV Cefepime
stop fluids
resume Losartan
CT A/P with and without contrast
appreciate ID
appreciate ENT
continue Prednisone (day 10/12)
Assessment / Plan
Assessment / Plan
Patient is a 73y F with PMH significant for hypertension, DM-II and uterine cancer s/p recent hysterectomy 07/27/24 who presents to ED complaining of recent loss of balance and hearing loss.
Renal US
IMPRESSION: Mild bilateral pelvicalyceal dilation.
Round echogenic lesion within the left kidney. See above discussion. Further evaluation is advised, which could begin with an unenhanced CT of the abdomen/kidneys.
Brain MRI
IMPRESSION:
Normal MR appearance of the IACs. No evidence for vestibular schwannoma. No evidence of cerebellopontine angle mass.
No evidence of acute intracranial abnormality.
Mild atrophy.
Mild to moderate T2 and FLAIR white matter hyperintensities, commonly seen with aging and usually attributed to small vessel ischemic disease. These hyperintensities have not been shown to correlate with a focal neurologic deficit.
The mastoid air cells appear clear.
There is slight compression of the left anterior medulla by the left vertebral artery. This finding is fairly commonly seen and generally does not correlate clinically, but please correlate with any symptoms that would suggest left vertebral artery
compression syndrome.
Paranasal sinus disease as described.
Left-Sided Sensorineural Hearing Loss
- Patient with some unsteady gait - but no room spinning / vertigo.
- Begin corticosteroids (pred 60mg daily) given sudden unilateral sensorineural hearing loss.
- MRI w and w/o contrast - results above
- ENT consult appreciated
- discussed with Dr. Stoddard and continue Prednisone x 10 days total
- PT / OT evaluation for gait - though patient states that this is improving.
SIRS
Klebsiella Bacteremia
-appreciate ID
-continue IV Cefepime (day 2)
-renal US results above, will obtain CT A/P to follow up left kidney lesion
-called micro lab - differentiating if culture contaminant versus pathological and states should be bcak tomorrow
Abnormal Troponin
- Troponin in the ED mildly elevated at 0.065 - has trended down. No chest pain. Mild dyspnea that patient states has been chronic. in setting of SIRS - non-NC Troponin elevation
- EKG without evident ischemia.
Renal Insufficiency
- SCr on admission is 1.5 with no prior values for comparison.
- MALLIKA resolved
- OK to stop fluids, OK to resume Losartan
Normocytic Anemia
- Stable / unchanged from prior Hgb on file.
- Check iron studies. Follow for changes in H&H.
Metastatic Uterine Cancer
- s/p hysterectomy on 07/27/24.
- Has yet to begin adjuvant therapies (chemo / XRT / etc).
- Plan is to begin after two months of surgical recovery.
- MRI brain as noted above.
- Surgical incision appears to be healing well.
- Follow for any changes.
Benign Hypertension
- BP on the lower side in the ED.
- Hold HCTZ, resume Losartan
DM-II
- Stable. Hold metformin acutely and for 48 hours post contrast
- Follow glucose and cover with SSI as needed.
- Update A1C.
Post-Op Constipation
- Improving with bowel regimen at home per patient.
- Abdomen is benign.
- Continue bowel regimen and follow for results.
DVT Prophylaxis: Continue Eliquis started post-op for this purpose.
Code Status: Full
51 minutes spent on patient care
Anticipated Discharge: 24 - 48 hours
Subjective/Interval History
-
Date of Service: August 18, 2024
continues to have hearing loss
no significant abdominal pain
Objective Data
-
Labs:
Laboratory Results
08/18/24
06:17
WBC 17.0 H
Hgb 9.8 L
Hct 28.9 L
Plt Count 216
Sodium 136
Potassium 4.3
Chloride 104
Carbon Dioxide 22
BUN 33 H
Creatinine 0.9
Glucose 116 H
Calcium 8.9
Vital Signs:
Vital Signs
Temp Pulse Resp BP Pulse Ox
98.3 F 65 12 157/68 99
08/18/24 07:48 08/18/24 07:48 08/18/24 07:48 08/18/24 07:48 08/18/24 07:48
I&O
08/17/24 08/18/24 08/19/24
06:59 06:59 06:59
Intake Total 780 / 780 2340 / 2340
Balance 780 / 780 2340 / 2340
Review of Systems
-
History Source: Patient
All other systems: Reviewed and negative
Physical Exam
-
General: No Apparent Distress
HEENT: PERRLA
Respiratory: Clear to Auscultation; Negative Wheezes
Cardiac: Regular Rhythm and S1/S2
GI: Soft, Nontender and Other (mid-line incision c/d/i)
Musculoskeletal: No Edema
Skin: Warm and Dry; Negative Rash
Neuro: AO x 3
Psych: Calm
Data Reviewed
-
Diagnostic Radiology: Report Reviewed by me
Labs: Labs Reviewed by me
[2024-08-18 11:28] VITALS: BP 163/76
[2024-08-18] MEDS: COZAAR 50 MG PO (11:39)
[2024-08-18 13:27] LABS: Glucose - Point of Care 156 mg/dl (70-99)
--- NOTE | 2024-08-18 14:22 | W.PN.ID1 ---
Date of Service
Date of Service: August 18, 2024
Today's Communication
Continue cefepime for today.
Assessment / Plan
Klebsiella bacteremia
Suspected complicated urinary tract infection
Leukocytosis
MALLIKA
Metastatic endometrial carcinoma (recent diagnosis; s/p LEFTY 07/27/2024)
Hx HTN
Dyslipidemia
DM
Hx breast CA
Recommendations:
Continue with cefepime for the present.
Monitor white count and temperature curve.
Await further culture data to guide antimicrobial selection and de-escalation.
����������������������������������������������������������
Chief Complaint
-: UTI
Subjective / Review of Systems
Review of Systems: No Fever and No Chills
Vital Signs / Physical Exam
Vital Signs
Vital Signs
Temp Pulse Resp BP Pulse Ox
98.9 F 77 18 163/76 100
08/18/24 11:28 08/18/24 11:28 08/18/24 11:28 08/18/24 11:28 08/18/24 11:28
Physical Exam
Constitutional: No Acute Distress, Comfortable and Non-toxic
Eyes: Sclera Anicteric
Cardiovascular: S1/S2; Negative S3/S4
Pulmonary: Non Labored
Gastrointestinal: Soft, Non Tender and Non Distended
Neurological: Awake and Alert
Psychological: Calm
Objective Data
Lab Data
Lab Results
08/18/24 06:17
08/18/24 06:17
Estimated Creat Clear 56 ml/min 08/18/24 06:17
Total Bilirubin 0.3 mg/dl (0.2-1.3) 08/17/24 05:28
AST 19 U/L (14-36) 08/17/24 05:28
ALT 13 U/L (0-35) 08/17/24 05:28
Alkaline Phosphatase 91 U/L (38-126) 08/17/24 05:28
Most recent labs reviewed.
CT Scan: Image Reviewed and Report Reviewed
Micro Results:
08/17/24 13:32 Blood Culture - Preliminary
Blood/Venous No Growth in 24 hours- Final report to follow
08/16/24 22:40 Blood Culture - Preliminary
Blood/Venous Klebsiella pneumoniae
Gram Stain - Preliminary
08/16/24 22:40 Blood Culture - Preliminary
Blood/Venous Klebsiella pneumoniae
Gram Stain - Preliminary
08/17/24 02:32 Urine Culture - Preliminary
Urine
Imaging:
08/18/2024 CT abdomen/pelvis: Study performed; report pending.
08/17/2024 Renal ultrasound: Mild right pelvic calyceal dilatation noted. A simple cyst peripherally is noted. Mild left pelvic calyceal dilatation is also present. An echogenic lesion is present in the left kidney and this lesion measures 2.2 x
1.8 x 2.3 cm. Advised further evaluation by CT scan.
08/16/2024 CXR (2 view): No evidence for pneumonia. Small thin curvilinear density projecting over the left lower lung on the frontal view, likely a small linear scar. Please see full dictation for additional detail. Film personally viewed.
--- NOTE | 2024-08-18 14:50 | CM ---
Reviewed the chart notes and spoke with the patient at the bedside. Patient had CAT Scan of the abdomen/pelvis today. Per report, 4.5 cm pelvic abscess in the hysterectomy surgical bed. CM continues to be available to patient/family and is
monitoring medical plan for needs at discharge.
Plan: Discharge plans will depend on the patient's progress.
--- NOTE | 2024-08-18 15:33 | PTOTSP ---
The patient is independent with ambulation and denied concerns regarding mobility upon return home. No PT needs identified at this time, will sign off.
--- NOTE | 2024-08-18 16:24 | W.PN.UPDATE ---
Update Note
Progress Note Update
CT results:
IMPRESSION:
1. 4.5 cm PELVIC ABSCESS in the hysterectomy surgical bed.
2. ACUTE BILATERAL PYELONEPHRITIS and mild bilateral hydroureteronephrosis.
3. Moderate nodular omental thickening in the left upper quadrant consistent with OMENTAL METASTATIC DISEASE. Inflammatory/infectious omental disease is considered less likely.
4. 2.1 cm ENLARGED RIGHT EXTERNAL ILIAC LYMPH NODE and mild to moderate retroperitoneal lymphadenopathy suspicious for METASTATIC LYMPHADENOPATHY. Reactive infectious or inflammatory lymphadenopathy is considered less likely.
5. Severe diverticulosis in the descending and sigmoid colon.
6. Mild to moderate wall thickening in the cecum and ascending colon (either reactive wall thickening or acute colitis).
7. 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
8. Severe lower lumbar discogenic degenerative disease and facet joint arthrosis.
9. Acute superior endplate fracture of L1.
I have a call out to [facility] for patient's surgeon, Dr. Lynne Powell, to call me back. I am also discussing case with in-house Gynecology, consult placed.
Dr. Franks updated on findings.
Patient updated on findings.
[2024-08-18 16:45] LABS: Glucose - Point of Care 252 mg/dl (70-99)
[2024-08-18] MEDS: NOVOLOG FLEXPEN-LOW RESISTANCE 3 UNITS SC (17:03)
--- NOTE | 2024-08-18 17:40 | CON.MD ---
Consultation - Medical
-
73-year-old menopausal female, who is S/P total abdominal hysterectomy BSO, cancer staging on 07/27/[address] Lynne Powell at [facility] for metastatic endometrial cancer, was admitted to [facility] 2 days ago
after presenting with left sided hearing loss and dizziness/poor balance. Evaluation so far shows leukocytosis and positive blood culture for Klebsiella. Urine culture is still pending. Infectious disease has seen her and placed her on cefepime
IV.
I was asked to see her due to CT imaging today showing 4.5 cm pelvic abscess in the hysterectomy surgical bed.
ROS: Positive findings include left-sided hearing loss, dizziness, constipation. Reports some leakage of urine since having surgery
Negative findings include denial of fever, chills, chest pain, shortness of breath, abdominal pain, vaginal bleeding.
PMH: Hypertension, diabetes-type II, metastatic endometrial carcinoma (recent LEFTY/BSO cancer staging procedure 07/27/2024 at [facility]), elevated cholesterol, history of breast cancer status postlumpectomy, chemotherapy and radiation
therapy.
PSH: Breast lumpectomy, total abdominal hysterectomy BSO cancer staging
Allergies: Penicillin
Medications: (Outpatient)
Atorvastatin 80 mg p.o. nightly
HCTZ 12.5 mg p.o. daily
Losartan 50 mg p.o. daily
Lutein 10 mg p.o. twice daily
Metformin 1000 mg p.o. twice daily
Eliquis 2.5 mg p.o. twice daily
Sennosides 8.6 mg p.o. daily
Social history: Negative for tobacco, alcohol drug use
Family history noncontributory
Physical exam:
Appearance pleasant female in no acute distress, awake alert oriented x 3
Vital signs temp 98.9 pulse 77 blood pressure 163/76 respirations 18
Heart regular
Abdomen soft, nontender nondistended, incision clean dry intact well-healed without erythema. Left lower abdominal wall there is a rounded lump noted nearby a port site questionable hematoma from recent surgery
Pelvic exam: Deferred
Extremities no calf pain
Labs reviewed:
White blood cell count 17, hemoglobin 9.8, platelet 216
CT abdomen/pelvis:
-4.5 cm pelvic abscess and hysterectomy surgical bed.
-Acute bilateral pyelonephritis and mild bilateral hydroureteronephrosis
-Moderate nodular omental thickening in the left upper quadrant consistent with omental metastatic disease
-Severe diverticulosis in the descending and sigmoid colon
-Mild to moderate wall thickening in the cecum and ascending colon (either reactive wall thickening or acute colitis)
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
-Severe lower lumbar discogenic degenerative disease and facet joint arthrosis
-Acute superior endplate fracture of L1
Impression:
1. Endometrial carcinoma with metastasis s/p LEFTY/BSO with cancer staging 07/27/[address] Lynne Powell, [facility].
2. CT demonstrating pelvic collection 4.5 cm-possible pelvic abscess. I spoke with Dr. Powell who informed me that she used Johnny during surgery which also should be considered possibly related to this collection.
-IV antibiotics cefepime
3. Klebsiella bacteremia-on IV cefepime. Urine cultures pending.
4. Bilateral pyelonephritis and mild bilateral hydroureteronephrosis
5. Diverticulosis. Mild to moderate wall thickening in the cecum and ascending colon-reactive versus colitis. Patient has no colitis symptoms presently.
6. Hypertension
7. Diabetes mellitus-type II
Plan:
After seeing the patient I contacted Dr. Lynne Powell who performed her surgery on 07/27/2024. Dr. Powell agrees to accept transfer of patient to [facility]. I called transfer line at [phone] and bed was reserved. Patient is
agreeable to transfer to [facility] under the care of Dr. Lynne Powell for further management and care. I communicated with Macarena Newsome MD who is hospitalist primary service. Primary service will transfer to [facility]. They have already obtained consent from the patient.
time spent 60 min with review of chart, direct patient contact and coordination of care.
[2024-08-18 19:06] VITALS: BP 156/89
--- NOTE | 2024-08-19 06:19 | W.DCSUMMARY ---
Discharge Summary
Discharge Data
Date of Admission: 08/16/24
Date of Discharge: 08/18/24
-
Pending Results: Yes
Additional Pending Results:
follow up blood cultures
Hospital Course
Discharging Physician : Dr. Macarena Newsome
Disposition : [facility] to care of patient's surgeon, Dr. Lynne Powell
Primary care physician : Dr. Essie Valdez
Principal Discharge diagnosis : Pelvic Abscess, Gram negative bacteremia
Hospital Course :
Patient is a 73y F with PMH significant for hypertension, DM-II and uterine cancer s/p recent hysterectomy 07/27/24 who presents to ED complaining of recent loss of balance and hearing loss in left ear. She also complained of chills several
nights prior, denied abdominal pain. Upon arrival, patient afebrile and hypertensive. Labs with WBC 22.3, creatinine 1.5.
She was admitted to medicine and started on prednisone for acute left-sided hearing loss. ENT consulted, agreed with course of 10 days Prednisone 60mg. MRI Brain obtained without acute abnormality to explain presentation.
Blood cultures were drawn at admission given leukocytosis and report of chills, they returned positive for gram negative rods and patient was started on IV Cefepime. Speciation showed Klebsiella pneumoniae, awaiting final sensitivities. UA showed
inflammation. Further work-up involved renal US followed by CT with contrast once creatinine normalized. CT demonstrated 4.5 cm pelvic abscess and bilateral pyelonephritis. Patient's surgeon, Dr. Lynne Powell, from [facility] [address] was
updated and accepted patient for transfer. Gynecology was consulted as well. Vitals stable pre transfer and patient without significant pain but did describe some minor discomfort. She was updated on results and reason for transfer, brother
updated as well.
Time spent on discharge was 60 minutes.
Important imaging findings :
CT Head 08/16
IMPRESSION:
No evidence of acute intracranial abnormality.
CXR
IMPRESSION:
Small thin curvilinear density projecting over the left lower lung on the frontal view, likely a small linear scar.
No evidence for consolidation.
Renal US
IMPRESSION: Mild bilateral pelvicalyceal dilation.
Round echogenic lesion within the left kidney. See above discussion. Further evaluation is advised, which could begin with an unenhanced CT of the abdomen/kidneys.
MRI Brain
IMPRESSION:
Normal MR appearance of the IACs. No evidence for vestibular schwannoma. No evidence of cerebellopontine angle mass.
No evidence of acute intracranial abnormality.
Mild atrophy.
Mild to moderate T2 and FLAIR white matter hyperintensities, commonly seen with aging and usually attributed to small vessel ischemic disease. These hyperintensities have not been shown to correlate with a focal neurologic deficit.
The mastoid air cells appear clear.
There is slight compression of the left anterior medulla by the left vertebral artery. This finding is fairly commonly seen and generally does not correlate clinically, but please correlate with any symptoms that would suggest left vertebral artery
compression syndrome.
Paranasal sinus disease as described.
CT A/P
IMPRESSION:
1. 4.5 cm PELVIC ABSCESS in the hysterectomy surgical bed.
2. ACUTE BILATERAL PYELONEPHRITIS and mild bilateral hydroureteronephrosis.
3. Moderate nodular omental thickening in the left upper quadrant consistent with OMENTAL METASTATIC DISEASE. Inflammatory/infectious omental disease is considered less likely.
4. 2.1 cm ENLARGED RIGHT EXTERNAL ILIAC LYMPH NODE and mild to moderate retroperitoneal lymphadenopathy suspicious for METASTATIC LYMPHADENOPATHY. Reactive infectious or inflammatory lymphadenopathy is considered less likely.
5. Severe diverticulosis in the descending and sigmoid colon.
6. Mild to moderate wall thickening in the cecum and ascending colon (either reactive wall thickening or acute colitis).
7. 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
8. Severe lower lumbar discogenic degenerative disease and facet joint arthrosis.
9. Acute superior endplate fracture of L1.
Procedure findings :
Discharge Plan
-
Patient Disposition: [facility]
Discharge Orders:
Discharge Patient (As Directed); Ordered 08/18/24
Ordered By: Jumana Yañez
Discharge Date and Time
Discharge Date/Time: 08/18/24 19:17
Print Language: SPANISH
--- NOTE | 2024-08-19 08:47 | PN.CDI ---
CDI
- -
CDI:
Physician Documentation Request
Admit Date: 08/16/24 22:36
Dear Doctor Jerod,
Please review the following and provide your response in the progress notes.
Clinical Indicators:
Pt admitted with hearing loss/loss of balance /chills /SIRS
Documented per H&P and progress notes 08/17&08/18,' SIRS Patient presented with tachycardia, leukocytosis with shift. Stated chills Saturday evening.'
Progress note 08/18, ' SIRS Klebsiella Bacteremia...-appreciate ID continue IV Cefepime....'
Update note 08/18, '.... 4.5 cm PELVIC ABSCESS in the hysterectomy surgical bed. ACUTE BILATERAL PYELONEPHRITIS and mild bilateral hydroureteronephrosis.'
On admission WBC 22.3, HR 107
Please clarify which of the following most accurately describes the status of the patient's infection:
Sepsis-POA
- Systemic manifestations of infection, with 2 or more SIRS criteria which include:
- Fever >100.4 degrees F or hypothermia < 96.8 degrees F
- Leukocytosis - WBC > 12,000 or leukopenia - WBC < 4,000 or > 10% bands
- Tachycardia > 90 beats per minute
- Tachypnea - RR > 20 breaths per minute or PaCO2 , 32mmHg
Source: Merck Manual 2013
Pelvic Abscess only , Without Systemic Illness
Other ( please specify)
Use of terms such as suspected, likely, concern for, or probable (associated with a specific diagnosis that is being evaluated, monitored, or treated as if it exists) are acceptable and can be coded in the inpatient setting, when documented at the
time of discharge.
Thank you,
Renu Fountain RN
CDI Specialist
[place] [employer]
Please use your independent medical judgment in providing your response.
--- NOTE | 2024-08-19 09:06 | PN.CDI ---
CDI
- -
CDI:
Physician Documentation Request
Admit Date: 08/16/24 22:36
Dear Doctor Jerod,
Please review the following and provide your response in the progress notes.
Clinical Indicators:
Pt admitted with hearing loss/loss of balance /chills /SIRS
Progress note 08/18, ' SIRS Klebsiella Bacteremia...-appreciate ID continue IV Cefepime....'
Update note 08/18, '.... 4.5 cm PELVIC ABSCESS in the hysterectomy surgical bed. ACUTE BILATERAL PYELONEPHRITIS and mild bilateral hydroureteronephrosis.'
Documented in the record, ' Metastatic Uterine Cancer s/p hysterectomy on 07/27/24...'
Documented in consult [employer] [facility] 08/18, ' 2. CT demonstrating pelvic collection 4.5 cm-possible pelvic abscess. I spoke with Dr. Powell who informed me that she used Johnny during surgery which also should be considered possibly related to this
collection...'
Please clarify a suspected diagnosis related to the documented pelvic abscess:
Pelvic Abscess is a complication of the surgery
Pelvic Abscess is unexpected but is NOT a complication of the surgery
Other ( please specify)
Use of terms such as suspected, likely, concern for, or probable (associated with a specific diagnosis that is being evaluated, monitored, or treated as if it exists) are acceptable and can be coded in the inpatient setting, when documented at the
time of discharge.
Thank you,
Renu Fountain RN
CDI Specialist
[place] [employer]
Please use your independent medical judgment in providing your response.
== END 2024-08-18 19:17 | disposition home or self-care (01) | DRG 862 ==
LOC: 2 NORTH 22:36
PROVIDERS: ADMITTING PHYSICIAN Hospitalist; ATTENDING PHYSICIAN Student in an Organized Health Care Education/Training Program; CONSULT PHYSICIAN Obstetrics & Gynecology; EMERGENCY PHYSICIAN Student in an Organized Health Care Education/Training Program; FAMILY PHYSICIAN Family Medicine; OTHER PHYSICIAN Internal Medicine Infectious Disease; OTHER PHYSICIAN Otolaryngology Facial Plastic Surgery
DX: T81.42XA Infection following a procedure, deep incisional surgical site, initial encounter (principal); A41.59 Other Gram-negative sepsis; C78.6 Secondary malignant neoplasm of retroperitoneum and peritoneum; S32.019A Unspecified fracture of first lumbar vertebra, initial encounter for closed fracture; N13.6 Pyonephrosis; N73.0 Acute parametritis and pelvic cellulitis; Z90.710 Acquired absence of both cervix and uterus; K57.30 Diverticulosis of large intestine without perforation or abscess without bleeding; K52.9 Noninfective gastroenteritis and colitis, unspecified; D17.71 Benign lipomatous neoplasm of kidney; M51.369 Other intervertebral disc degeneration, lumbar region without mention of lumbar back pain or lower extremity pain; M47.819 Spondylosis without myelopathy or radiculopathy, site unspecified; R59.0 Localized enlarged lymph nodes; H90.42 Sensorineural hearing loss, unilateral, left ear, with unrestricted hearing on the contralateral side; Z85.3 Personal history of malignant neoplasm of breast; B96.1 Klebsiella pneumoniae [K. pneumoniae] as the cause of diseases classified elsewhere; C54.1 Malignant neoplasm of endometrium; D64.9 Anemia, unspecified; E78.00 Pure hypercholesterolemia, unspecified; E86.0 Dehydration; H93.12 Tinnitus, left ear; I10 Essential (primary) hypertension; K59.09 Other constipation; Z79.01 Long term (current) use of anticoagulants; Z79.84 Long term (current) use of oral hypoglycemic drugs; Z80.3 Family history of malignant neoplasm of breast; Z85.42 Personal history of malignant neoplasm of other parts of uterus; Z90.722 Acquired absence of ovaries, bilateral; Z92.21 Personal history of antineoplastic chemotherapy; Z92.3 Personal history of irradiation; Z11.52 Encounter for screening for COVID-19; T81.44XA Sepsis following a procedure, initial encounter; Y83.6 Removal of other organ (partial) (total) as the cause of abnormal reaction of the patient, or of later complication, without mention of misadventure at the time of the procedure
CPT/HCPCS: 70450; 70553; 71046; 74178; 76775; 80048; 80053; 80061; 81003; 81015; 82248; 82962; 83036; 83540; 83550; 83735; 84443; 84484; 85025; 85027; 86803; 87040; 87077; 87086; 87149; 87186; 87205; 87811; 93005; 96360; 97161; 99285; A9575; Q9967